=== PATIENT | female | born 2000 | race Caucasian/White ===

== ENCOUNTER 2022-03-29 01:08 | Emergency (ER) | payer OTHER, SELFPAY ==
[2022-03-29 01:14] VITALS: BP 112/79; PULSE 85; RESP 18; TEMP 36.6; O2SAT 100; BMI 28.2
[2022-03-29 01:41] LABS: Appearance Urine Cloudy (Clear); Bilirubin Urine Negative (Negative); Blood Urine 1+ (Negative); Color Urine Yellow (Yellow); Glucose Urine Negative (Negative); Ketones Urine Negative (Negative); Leukocyte Esterase Urine 3+ (Negative); Nitrite Urine Negative (Negative); Protein Urine Negative (Negative); Specific Gravity Urine 1.015 (1.000-1.030); Urobilinogen Urine 0.2 (0.2-1.0); pH Urine 8.5 (5.0-8.5)
[2022-03-29 01:54] LABS: Bacteria Urine Moderate; RBC Urine 0-2 (0-2); Squamous Epithelial Cell Urine Moderate (None-Few)
--- NOTE | 2022-03-29 02:24 | ED.FEMALEGU ---
HPI - Female Genitourinary General Time Seen by Provider: 02:00 Date Seen: 03/29/22 Chief complaint: Unspecified Complaint, Adult Stated complaint: mid/low back pain Time Seen by Provider: 03/29/22 01:30 Source: patient, RN notes reviewed and old records reviewed Mode of arrival: ambulatory Limitations: no limitations History of Present Illness HPI Narrative: Patient is a very pleasant 22-year-old female who denies and is recently who comes to the emergency room for evaluation of urinary tract infection. Patient states that on FridayMarch 24 she began experiencing urinary frequency. She has had bladder infections in the past. She notes that now she has some discomfort extending into her back but has not experienced any fever, vomiting, chills. She recently got and her is stationed in [place]. She just flew back from getting . She states she is otherwise a healthy person. Related Data Home Medications Medication Instructions Recorded Confirmed Tylenol 1,000 mg 03/29/22 fluoxetine 10 mg capsule mg 03/29/22 Previous Rx's Medication Instructions Recorded nitrofurantoin 100 mg PO Q12H 5 Days #10 cap 03/29/22 monohydrate/macrocrystals 100 mg capsule (Macrobid) Allergies Allergy/AdvReac Type Severity Reaction Status Date / Time No Known Drug Allergies Allergy Verified 03/29/22 01:17 Review of Systems Const: Denies: fever, chills or fatigue Resp: Denies: cough GI: Denies: abdominal pain, nausea or vomiting : Reports: painful urination, urinary frequency and urinary urgency; Denies: blood in urine Musculo: Reports: back pain Endo: Denies: fatigue PFSH PFSH Social History Smoking Status: Never smoker How often do you have a drink containing alcohol: 2-4 times a month AUDIT-C Alcohol total score: 2 Non-prescribed substance use: marijuana (any form) Exam Const: Vital Signs, click to edit/add: Vital Signs - 24 hr 03/29/22 01:14 Temperature 97.9 F Pulse Rate [Left P ulse Oximeter] 85 Respiratory Rate 18 Blood Pressure [Ri ght Upper Arm] 112/79 Pulse Oximetry 100 Documenting provider has reviewed patient's vital signs: yes Common normals: no apparent distress, average body habitus, oriented x3 and no limitations General appearance: cooperative, comfortable and well kempt HENMT: Common normals: normocephalic and head/scalp atraumatic Head and scalp: normocephalic and atraumatic Eye: General eye: normal appearance of both eyes Resp: Common normals: normal respiratory effort and clear to auscultation bilaterally Effort & inspection: able to speak in complete sentences Auscultation: clear to auscultation bilaterally Cardio: Common normals: regular rate and regular rhythm Rate: regular rate Rhythm: regular rhythm GI: Common normals: soft to palpation and non-tender Palpation: soft : Other: Minimal CVA tenderness with percussion. Extremity: Common normals: normal to inspection Neuro: Common normals: oriented x3 Psych: Common normals: mental status grossly normal Appearance: well kempt Course Vital Signs Vital signs: Initial Vital Signs Temperature 97.9 F 03/29/22 01:14 Temperature Source Temporal Artery Scan 03/29/22 01:14 Pulse Rate 85 03/29/22 01:14 Respiratory Rate 18 03/29/22 01:14 Blood Pressure 112/79 03/29/22 01:14 Blood Pressure Mean 90 03/29/22 01:14 Blood Pressure Position Sitting 03/29/22 01:14 Pulse Oximetry 100 03/29/22 01:14 Oxygen Delivery Method 03/29/22 01:14 Vital Signs Temperature 97.9 F 03/29/22 01:14 Pulse Rate 85 03/29/22 01:14 Respiratory Rate 18 03/29/22 01:14 Blood Pressure 112/79 03/29/22 01:14 Pulse Oximetry 100 03/29/22 01:14 Temperature 97.9 F 03/29/22 01:14 Pulse Rate 85 03/29/22 01:14 Respiratory Rate 18 03/29/22 01:14 Blood Pressure 112/79 03/29/22 01:14 Pulse Oximetry 100 03/29/22 01:14 MDM - Female Genitourinary MDM Narrative Medical decision making narrative: 1. Urinary tract infection-patient has a urinalysis strongly suspicious for urinary tract infection. She has just recently to her who is stationed in to pain hand as he is in the [place]. Recommend use of Macrobid. First dose given tonight 100 mg p.o.. Remainder dosing will be Macrobid 100 mg p.o. b.i.d. x5 days. Sent to the pharmacy. Patient is instructed to push fluids, continue antibiotics. She may use [id number] azo for 2 days if she would like to her symptoms. However, if she develops fever, vomiting, chills she will need to return to the emergency room for further evaluation. She is nontoxic in appearance tonight. 2. Disposition-patient is discharged home. Medical Records Attestation: I reviewed the patient's medical records. Lab Data Attestation: I reviewed the patient's lab results. Labs: Lab Results 03/29/22 Range/Units 01:25 Urine Color Yellow (Yellow) Urine Appearance Cloudy A (Clear) Urine pH 8.5 (5.0-8.5) Ur Specific Jeremiah 1.015 (1.000-1.030) Urine Protein Negative (Negative) Urine Glucose (UA) Negative (Negative) Urine Ketones Negative (Negative) Urine Blood 1+ A (Negative) Urine Nitrite Negative (Negative) Urine Bilirubin Negative (Negative) Urine Urobilinogen 0.2 (0.2-1.0) Ur Leukocyte Esterase 3+ A (Negative) Urine RBC 0-2 (0-2) Urine WBC 10-25 A (0-5) Ur Squamous Epith Cells Moderate A (None-Few) Urine Bacteria Moderate A (None) Discharge Plan Discharge Clinical Impression: UTI (urinary tract infection) Patient Disposition: Home, Self-Care Condition: Unchanged Additional Instructions: Continue Macrobid tomorrow morning. A prescription has been sent to your pharmacy. Push fluids. Return to the emergency room for fever, vomiting, any worsening symptoms. Prescriptions: New nitrofurantoin monohyd/m-cryst [Macrobid] 100 mg capsule 100 mg PO Q12H 5 Days Qty: 10 0RF Rx Instructions: must administer with a meal/food No Action fluoxetine 10 mg capsule 0RF Tylenol 1,000 mg 0RF Follow Up/Referrals: Provider,Not a Local [Referring] - Stand Alone Forms: [facility] Info Instructions
[2022-03-29] MEDS: NITROFURANTOIN MONOHYD MACRO 100 MG CAPSULE PO (02:38)
== END 2022-03-29 02:42 | disposition home or self-care (01) ==
LOC: ED 02:24
PROVIDERS: Emergency Provider Family Medicine; PCP Family Medicine
DX: N39.0 Urinary tract infection, site not specified (principal)
CPT/HCPCS: 81003; 81015; 87086; 87186; 99283; 99284; A9270

== ENCOUNTER 2024-09-29 11:10 | Outpatient (CLI) | payer BC, SELFPAY | END 2024-09-29 11:11 | disposition home or self-care (01) | LOC: NFLDREF 10-04 02:52 | PROVIDERS: PCP Family Medicine; Referring Provider Family Medicine; Visit Provider Nurse Practitioner | DX: N30.01 Acute cystitis with hematuria (principal); B96.20 Unspecified Escherichia coli [E. coli] as the cause of diseases classified elsewhere | CPT/HCPCS: 87086 ==